=== PATIENT | female | born 1955 | race Caucasian/White ===

== ENCOUNTER 2020-08-06 08:27 | Outpatient (CLI) | payer MEDICARE, BC, SELFPAY ==
--- NOTE | ~2020-08-06 | MM_ITS ---
EXAMINATION: MM screening darien BI w ash HISTORY: Screening mammogram TECHNIQUE: Craniocaudal and mediolateral oblique 3-D tomosynthesis images were obtained and synthetic 2-D images were generated. CAD analysis was submitted and interpreted. COMPARISON: 05/03/2019, 04/02/2018, 03/31/2017 bilateral digital screening mammogram examinations BREAST PARENCHYMAL COMPOSITION: The breasts are almost entirely fatty. FINDINGS: There is no evidence of suspicious mass, calcification, or architectural distortion to sugg est malignancy in either breast. There has been no suspicious interval change. IMPRESSION: 1. No mammographic evidence of malignancy. 2. Recommend routine screening mammography in one year. BI-RADS Category 1: Negative Reviewed, dictated and finalized at location A.
--- NOTE | ~2020-08-06 | DEXA_ITS ---
Bone Density Report Name: Shaina De Leon Age: 64 Sex: Female Ethnicity: White Date of : 1955 Indication: postmenopausal; height loss; Referring Provider: Edison Gonzalez Study: Bone densitometry was performed. Exam Date: August 06, 2020 Accession number: [id number] Bone Density: Region BMD T-score Z-score Classification AP Spine (L1-L4) 1.160 1.0 2.9 Normal Femoral Neck (Left) 0.641 -1.9 -0.3 Osteopenia Total Hip (Left) 0.897 -0.4 0.9 Normal Total Hip Bilateral Avg 0.908 -0.3 1.0 Normal Femoral Neck (Right) 0.620 -2.1 -0.5 Osteopenia Total Hip (Right) 0.917 -0.2 1.1 Normal World Health Organization criteria for BMD impression classify patients as: Normal (T-score at or above -1.0), Osteopenia (T-score between -1.0 and -2.5), or Osteoporosis (T-score at or below -2.5). 10-year Fracture Risk(1): Major Osteoporotic Fracture 11% Hip Fracture 1.7% Reported Risk Factors: [place] (), Neck BMD=0.620, BMI=32.3 (1) FRAX(R) Version 3.08. Fracture probability calculated for an untreated patient. Fracture probability may be lower if the patient has received treatment. Previous Exams: Region Exam Age BMD T-score BMD Change BMD Change Date g/cm2 vs Baseline vs Previous AP Spine(L1-L4) 08/06/2020 64 1.160 1.0 -0.137(-10.5%) -0.027(-2.2%)* 09/25/2016 60 1.187 1.3 -0.110(-8.5%)# -0.069(-5.5%)# 02/21/2009 53 1.256 1.9 -0.041(-3.1%)* -0.041(-3.1%)* 12/07/2003 48 1.297 2.3 Total Hip(Left) 08/06/2020 64 0.897 -0.4 -0.107(-10.7%) -0.085(-8.7%)* 09/25/2016 60 0.982 0.3 -0.022(-2.2%)# 0.038(4.0%)# 02/21/2009 53 0.944 0.0 -0.060(-6.0%)* -0.060(-6.0%)* 12/07/2003 48 1.004 0.5 Total Hip(Right) 08/06/2020 64 0.917 -0.2 -0.119(-11.5%) -0.097(-9.6%)* 09/25/2016 60 1.013 0.6 -0.022(-2.1%)# 0.024(2.4%)# 02/21/2009 53 0.989 0.4 -0.046(-4.5%)* -0.046(-4.5%)* 12/07/2003 48 1.036 0.8 *Denotes significance at 95% confidence level, LSC for AP Spine = 0.022 g/cm2, LSC for Total Hip = 0.027 g/cm2 Clinical Information Provided by Patient: Has used the following medications: Vitamin D Patient maximum height was 60 Onset of menses at age 12 Number of children 0 Impression: The patient has low bone mass, based on the Right Femoral Neck T-score. The patient has an estimated ten-year risk of hip fracture of 1.7% and an estimated ten-year risk of major fracture of 11%, based
== END 2020-08-06 08:28 | disposition home or self-care (01) ==
LOC: ANHIMG 08:28
PROVIDERS: PCP Family Medicine; Visit Provider Physician Assistant
DX: Z12.31 Encounter for screening mammogram for malignant neoplasm of breast (principal); Z78.0 Asymptomatic menopausal state
CPT/HCPCS: 77063; 77067; 77080

== ENCOUNTER → 2021-01-05 00:03 | Outpatient (CLI) | payer MEDICARE, BC, SELFPAY ==
[2021-01-05 18:04] LABS: SARS-CoV-2 RNA PCR Negative
== END ==
PROVIDERS: PCP Family Medicine; Visit Provider Physician Assistant
DX: R05 Cough (principal); R50.9 Fever, unspecified; J02.9 Acute pharyngitis, unspecified; Z20.822 Contact with and (suspected) exposure to COVID-19
CPT/HCPCS: C9803; U0003; U0005

== ENCOUNTER 2021-02-28 12:57 | Outpatient (CLI) | payer MEDICARE, BC, SELFPAY ==
--- NOTE | ~2021-02-28 | XR_ITS ---
EXAMINATION: XR chest 2V DATE: 02/28/2021 13:13 INDICATION: Cough. Mid right back pain. TECHNIQUE: Frontal and lateral views of the chest were obtained. COMPARISON: Chest 2 views 06/12/2013 FINDINGS: There is mild atelectasis in left lower lung zone. No pleural effusion or pneumothorax. The heart size is normal. There are changes of anterior fusion procedure in cervical spine. IMPRESSION: 1. Mild atelectasis in left lower lung zone. Reviewed, dictated and finalized at location A. E ANALYST
== END 2021-02-28 12:58 | disposition home or self-care (01) ==
PROVIDERS: PCP Family Medicine; Visit Provider Family Medicine
DX: R05.9 Cough, unspecified (principal); J98.11 Atelectasis
CPT/HCPCS: 71046

== ENCOUNTER 2021-05-28 12:39 | Outpatient (CLI) | payer MEDICARE, BC, SELFPAY ==
--- NOTE | ~2021-05-28 | XR_ITS ---
XR chest 2V DATE: 05/28/2021 13:00 INDICATION: Atelectasis TECHNIQUE: PA and lateral views COMPARISON: 02/28/2021 PA and lateral chest FINDINGS: Status post anterior cervical spine surgical fusion. Normal heart size. No hilar or mediastinal enlargement. No pulmonary infiltrate or consolidation, ple ural effusion or pulmonary vascular congestion or pneumothorax. There is dextroscoliosis and degenerative spurring of the thoracic spine. IMPRESSION: No active cardiopulmonary disease Reviewed, dictated and finalized at location B. RELINER
== END 2021-05-28 12:40 | disposition home or self-care (01) ==
LOC: ANHIMG 12:45
PROVIDERS: PCP Family Medicine; Visit Provider Family Medicine
DX: J98.11 Atelectasis (principal)
CPT/HCPCS: 71046

== ENCOUNTER 2021-08-21 08:51 | Outpatient (CLI) | payer MEDICARE, BC, SELFPAY ==
--- NOTE | ~2021-08-21 | MM_ITS ---
EXAMINATION: MM screening darien BI w ash HISTORY: Screening TECHNIQUE: Craniocaudal and mediolateral oblique 3-D tomosynthesis images were obtained and synthetic 2-D images were generated. CAD analysis was submitted and interpreted. COMPARISON: Comparison to multiple prior studies sequentially, with oldest reviewed study dated 07/2014. BREAST PARENCHYMAL COMPOSITION: The breasts are almost entirely fatty. FINDINGS: There is a developing asymmetry in the subareolar location of the right breast on CC view. The left breast is stable without evidence for malignancy. IMPRESSION: 1. Developing asymmetry of the right breast. 2. Additional mammographic views and possible breast ultrasound are recommended. BI-RADS Category 0: Incomplete: Needs additional imaging evaluation. Reviewed, dictated and finalized at location A. IMPRESSION: 1. Developing asymmetry of the right breast. 2. Additional mammographic views and possible breast ultrasound are recommended . BI-RADS Category 0: Incomplete: Needs additional imaging evaluation.
== END 2021-08-21 08:52 | disposition home or self-care (01) ==
LOC: ANHIMG 08:54
PROVIDERS: PCP Internal Medicine; Visit Provider Internal Medicine
DX: Z12.31 Encounter for screening mammogram for malignant neoplasm of breast (principal); R92.8 Other abnormal and inconclusive findings on diagnostic imaging of breast
CPT/HCPCS: 77063; 77067

== ENCOUNTER 2021-08-30 11:01 | Outpatient (CLI) | payer MEDICARE, BC, SELFPAY ==
--- NOTE | ~2021-08-30 | MM_ITS ---
EXAMINATION: MM diagnostic darien RT w ash HISTORY: Right breast asymmetry on screening mammogram TECHNIQUE: Additional 3-D tomosynthesis images of the right breast were performed and synthetic 2-D i mages were generated. CAD analysis was submitted and interpreted. COMPARISON: 08/21/2021, 08/06/2020, 05/03/2019 FINDINGS: There is a 3 mm mass at the 6:00 location the anterior third of the breast 2 cm from the ni pple which is stable when compared to prior examinations. There has been no suspicious interval carvalho e. No suspicious calcification or architectural distortion are identified. IMPRESSION: 1. No mammographic evidence of malignancy. 2. Recommend routine screening mammography in one year. BI-RADS Category 2: Benign finding(s). Reviewed, dictated and finalized at location A.
== END 2021-08-30 11:02 | disposition home or self-care (01) ==
LOC: ANHIMG 11:03
PROVIDERS: PCP Internal Medicine; Visit Provider Internal Medicine
DX: N64.89 Other specified disorders of breast (principal)
CPT/HCPCS: 77061; 77065; G0279

== ENCOUNTER 2022-10-24 08:12 | Outpatient (CLI) | payer MEDICARE, BC, SELFPAY ==
--- NOTE | ~2022-10-24 | MM_ITS ---
EXAMINATION: MM screening darien BI w ash HISTORY: Screening mammogram TECHNIQUE: Craniocaudal and mediolateral oblique 3-D tomosynthesis images were obtained and synthetic 2-D images were generated. CAD analysis was submitted and interpreted. COMPARISON: 08/30/2021 diagnostic right mammogram 08/21/2021, 08/06/2020, 05/03/2019 bilateral screening mammogram examinations BREAST PARENCHYMAL COMPOSITION: There are scattered areas of fibroglandular density. FINDINGS: There is no evidence of suspicious mass, calcification, or architectural distortion to sugg est malignancy in either breast. There has been no suspicious interval change. IMPRESSION: 1. No mammographic evidence of malignancy. 2. Recommend routine screening mammography in one year. BI-RADS Category 1: Negative Reviewed, dictated and finalized at location A.
== END 2022-10-24 08:13 | disposition home or self-care (01) ==
LOC: ANHIMG 08:15
PROVIDERS: PCP Internal Medicine; Visit Provider Internal Medicine
DX: Z12.31 Encounter for screening mammogram for malignant neoplasm of breast (principal)
CPT/HCPCS: 77063; 77067

== ENCOUNTER 2023-12-01 07:47 | Outpatient (CLI) | payer MEDICARE, BC, SELFPAY ==
--- NOTE | ~2023-12-01 | MM_ITS ---
EXAMINATION: MM screening darien BI w ash HISTORY: Screening TECHNIQUE: Craniocaudal and mediolateral oblique 3-D tomosynthesis images were obtained and synthetic 2-D images were generated. CAD analysis was submitted and interpreted. COMPARISON: Comparison to multiple prior studies sequentially, with oldest reviewed study dated 03/14. BREAST PARENCHYMAL COMPOSITION: Not dense: There are scattered areas of fibroglandular density. FINDINGS: There is no evidence of suspicious mass, calcification, or architectural distortion to sugg est malignancy in either breast. There has been no suspicious interval change. IMPRESSION: 1. No mammographic evidence of malignancy. 2. Recommend routine screening mammography in one year. BI-RADS Category 1: Negative Reviewed, dictated and finalized at location B.
== END 2023-12-01 07:48 | disposition home or self-care (01) ==
LOC: ANHIMG 07:49
PROVIDERS: PCP Internal Medicine; Visit Provider Internal Medicine
DX: Z12.31 Encounter for screening mammogram for malignant neoplasm of breast (principal)
CPT/HCPCS: 77063; 77067

== ENCOUNTER 2024-03-03 04:45 | Emergency (ER) | payer MEDICARE, BC, SELFPAY ==
--- NOTE | ~2024-03-03 | XR_ITS ---
Portable chest x-ray Comparison: 05/28/2021 Clinical History: Status post fall Findings: Lungs are clear, without focal consolidation or pleural effusion. Cardiomediastinal silho uette is stable. Bones and soft tissues are unremarkable, aside from cervical spine fixation hardware . Impression: Clear lungs. Reviewed, dictated and finalized at [facility]. ACE HYDROLOGIST Impression: Clear lungs.
--- NOTE | ~2024-03-03 | CT_ITS ---
Non-contrast Head CT History: Trauma Technique: Axial non-contrast imaging of the brain was performed. Dose reduction technique was used on this scan by utilizing automated exposure control and iterative reconstruction technique. The dose -length product (DLP) was 681.00 mGy-cm. Findings: There is no evidence of intracranial hemorrhage, mass lesion, or acute infarct. Brain par enchyma appears normal. The ventricles and subarachnoid spaces are normal in size. The calvarium ap pears normal. The visualized paranasal sinuses and mastoid air cells are clear. Impression: No significant abnormality seen. Reviewed, dictated and finalized at location . RECONCILIATION SPECIALIST Impression: No significant abnormality seen.
--- NOTE | ~2024-03-03 | XR_ITS ---
Left Knee Technique: AP, lateral, and sunrise views were obtained. Clinical History: Status post fall Findings: No fracture or dislocation is seen. Osseous alignment is anatomic. Mild tricompartmental de generative spurring noted. Soft tissues are unremarkable. No joint effusion is seen. Impression: No acute fracture or dislocation. Mild tricompartmental degenerative change. Reviewed, dictated and finalized at location . AL NUTRITIONIST Impression: No acute fracture or dislocation. Mild tricompartmental degenerative change.
[2024-03-03 04:47] VITALS: BP 166/76; RESP 14; TEMP 36.8
--- NOTE | 2024-03-03 04:51 | ECG_ITS ---
Test Date: 2024-03-03 05:05:57 Measurements Intervals [place] Rate: 67 P: 46 [place]: 180 QRS: 2 QRSD: 78 T: 31 QT: 363 QTc: 385 Interpretive Statements SINUS RHYTHM LOW QRS VOLTAGE IN PRECORDIAL LEADS CONSIDER ANTERIOR INFARCT, AGE INDETERMINATE CONSIDER INFERIOR INFARCT, AGE INDETERMINATE BORDERLINE ST-T WAVE ABNORMALITY- HIGH LATERAL LEADS BASELINE ARTIFACT- I, II, III, AVR, AVL, AVF, V1-V6 ABNORMAL ECG No previous ECG available for comparison Electronically Signed On 03-03-2024 05:24:00 SHIPS OR BARGES LOADER by Rj Bright D.O.
--- NOTE | 2024-03-03 05:19 | PC.NURSE ---
went to get labs and line in pt room. pt taken to CT and XRAY
[2024-03-03 06:06] LABS: Basophils Absolute Auto 0.1 K/mm3 (0.0-0.1); Basophils Percent Auto 0.9 % (0.2-1.2); Eosinophils Absolute Auto 0.1 K/mm3 (0-0.3); Eosinophils Percent Auto 1.9 % (0-4.4); Hematocrit 44.5 % (37.0-47.0); Hemoglobin 14.9 g/dL (12.0-15.0); Immature Granulocyte Absolute 0.01 K/mm3 (0.00-0.031); Immature Granulocyte Percent A 0.2 % (0-0.5); Lymphocytes Absolute Auto 1.69 K/mm3 (0.9-3.2); Lymphocytes Percent Auto 28.8 % (18.3-44.2); Mean Corpuscular HGB Conc 33.5 g/dl (32-36); Mean Corpuscular Hemoglobin 30.7 pg (26-34); Mean Corpuscular Volume 91.6 fl (80-100); Mean Platelet Volume 11.9 fl (7.4-10.4); Monocytes Percent Auto 16.9 % (2.6-8.5); Neutrophils Percent Auto 51.3 % (45.5-73.1); Platelet Count Result 154 k/mm3 (150-375); Red Blood Count 4.86 M/mm3 (4.2-5.4); Red Cell Distribution Width 12.9 % (11.5-14.5); White Blood Count 5.9 K/mm3 (4.5-10.0)
[2024-03-03 06:17] LABS: Alanine Aminotransferase 42 U/L (6-35); Albumin Level 4.2 g/dL (3.5-5.1); Alkaline Phosphatase 72 U/L (38-126); Anion Gap 6 mmol/L (4-12); Aspartate Amino Transferase 40 U/L (14-36); Bilirubin,Total 0.4 mg/dL (0.2-1.3); Blood Urea Nitrogen 27 mg/dL (7-17); Calcium 9.7 mg/dL (8.4-10.2); Carbon Dioxide 29 mmol/L (22-30); Chloride 104 mmol/L (98-107); Estimated CRCL calculation 43 ml/min; Estimated Glomerular Filt Rate 55; Glucose 125 mg/dL (65-110); Potassium 3.9 mmol/L (3.4-5.0); Sodium 139 mmol/L (137-145)
--- NOTE | 2024-03-03 06:29 | ED_ITS ---
HPI - Fall General Chief Complaint: Fall Stated Complaint: fall Time Seen by Provider: 03/03/24 04:51 History of Present Illness HPI Narrative: Patient is a 68-year-old female who presents to the emergency department this morning after a ground level fall that occurred at home. Patient states that she was getting up from bed to go use the restroom and believes that she got up too fast and slid off the mattress and to the ground and hit the front of her forehead on the wall. Patient does not believe that she passed out but is not 100% sure. She does have a some minor abrasions to her left elbow and left knee. Patient states that she was able to get up on her own without any help or difficulty. Patient does have a small hematoma to the middle of her forehead and a small hematoma to her lateral left knee. Intact range of motion an oral extremities. Denies any current chest pain or shortness of breath, any lightheadedness, dizziness, blurry vision, focal weakness, numbness and tingling. No additional symptoms or concerns at this time. Related Data Home Medications Medication Instructions Recorded Confirmed fluticasone propionate 50 1 spray intranasal DAILY 04/19/19 02/27/21 mcg/actuation nasal spray,suspension aspirin 81 mg tablet,delayed 81 mg PO QAM 08/19/19 02/27/21 release (Adult Aspirin Regimen) cholecalciferol (vitamin D3) 50 50 mcg PO DAILY 08/19/19 02/27/21 mcg (2,000 unit) capsule multivitamin 1 tablet PO DAILY 08/19/19 02/27/21 ezetimibe 10 mg tablet (Zetia) 10 mg PO DAILY 02/27/21 02/27/21 hydrocortisone 1 % topical cream 1 applic topical BID PRN 02/27/21 02/27/21 (Cortisone (hydrocortisone)) rosuvastatin 20 mg tablet 40 mg PO DAILY 02/27/21 02/27/21 Allergies Allergy/AdvReac Type Severity Reaction Status Date / Time propoxyphene Allergy Mild DZZY/LIGHT- Verified 02/27/21 10:41 HEADED dimenhydrinate [Dramamine] Allergy Unknown Nervous Verified 02/27/21 10:41 erythromycin base Allergy Unknown Nausea Verified 02/27/21 10:41 meclizine Allergy Unknown Nervous Verified 02/27/21 10:41 nitroglycerin Allergy Unknown Hypotension Verified 02/27/21 10:41 Review of Systems Review of Systems: All systems are reviewed and are negative unless stated otherwise in the HPI. FORMERLY [facility] Past Medical History Medical History H/O Mohs micrographic surgery for skin cancer Surgical History Surgical History H/O discectomy H/O heart artery stent History of carpal tunnel release Hx of cholecystectomy Family History Family History Mother Diabetes mellitus Family history of glaucoma Family history of cardiovascular disease Acute myocardial infarction, Onset Age: 60 Family history of coronary artery disease Depression Hypertension Family history of elevated blood lipids Family history of kidney disease Family history of Alzheimer's disease Family history of malignant neoplasm of breast in first degree relative Father Family history of elevated blood lipids, Onset Age: 60 Family history of cardiovascular disease Acute myocardial infarction, Onset Age: 60 Family history of coronary artery disease, Onset Age: 60 Diabetes mellitus Family history of malignant neoplasm of bone Social History Social History Alcohol intake: never Exam Narrative: General: Alert, awake, afebrile, in no acute distress. HEENT: PERRL, no rhinorrhea, no post nasal drip, oropharynx clear, small soft tissue swelling to the mid forehead. Neck: Trachea midline, no JVD, no lymphadenopathy. Cardiovascular: Regular rate and rhythm, no murmurs, rubs or gallops, no peripheral edema. Respiratory: Clear to auscultation bilaterally, no tachypnea, no wheezing, no rhonchi, no rubs, no respiratory distress. Abdomen: Soft, nontender, nondistended, no rebound, no guarding, no peritoneal signs. Musculoskeletal: No joint swelling or deformity, normal muscle tone, small hematoma to the lateral left knee, intact full range of motion in all joints, small abrasion to the left elbow. Skin: No rashes or petechia, no signs of infection. Psychiatric: Alert and oriented, normal behavior and judgment for situation. Neurological: Alert and oriented to person, place, and time. Follows all commands. No focal deficits, speech is clear and fluent. Course Vital Signs Vital signs: Vital Signs Temperature 98.2 F 03/03/24 04:47 Respiratory Rate 14 03/03/24 04:47 Blood Pressure 166/76 H 03/03/24 04:47 Temperature 98.2 F 03/03/24 04:47 Respiratory Rate 14 03/03/24 04:47 Blood Pressure 166/76 H 03/03/24 04:47 MDM - Fall MDM Narrative Medical decision making narrative: The patient was evaluated by myself in the emergency department. History is obtained from patient who is an independent historian and physical exam was performed. External medical records were reviewed at this time. IV was established and pertinent tests were ordered. Patient was administered oral Tylenol 650 mg. EKG was obtained which revealed sinus rhythm rate of beats per minute. No ST changes, T wave inversions or evidence of acute ischemia. EKG was independently interpreted by me and is currently pending official cardiology read. Laboratory results obtained revealing mild transaminitis with an AST of 40 and ALT of 42, otherwise no acute process. Troponin negative. Imaging studies obtained included chest and left knee x-rays which was independently interpreted by me revealing no acute process, which is pending final radiology interpretation. CT brain without IV contrast was also obtained at this time and inability interpreted by me revealing no acute intracranial process. Differential diagnosis considerations include ground level fall, intracranial hemorrhage, fractures, dislocations, syncopal episode. Comorbidities impacting this visit include none. I have evaluated and discussed social determinants of health with the patient that could potentially impact subsequent diagnosis and treatment plans. On repeat assessment of the patient, reevaluation revealed that the patient is doing well and is in no acute distress. Patient symptoms have improved since she arrived to our emergency department. Repeat vital signs were all reviewed and noted to be stable. Differential diagnosis and treatment plan were discussed with the patient at bedside. Patient agrees with discussion and after shared medical decision making agrees with discharge. All questions were answered to the patient's satisfaction. Patient will follow up with her PCP in 3-5 days. Patient was provided with strict return precautions and instructed to return to the emergency department if any new or worsening symptoms develop. The patient was discharged in stable condition. Lab Data 03/03/24 05:58 03/03/24 05:58 Labs: Lab Results 03/03/24 Range/Units 05:58 WBC 5.9 (4.5-10.0) K/mm3 RBC 4.86 (4.2-5.4) M/mm3 Hgb 14.9 (12.0-15.0) g/dL Hct 44.5 (37.0-47.0) % MCV 91.6 (80-100) fl MCH 30.7 (26-34) pg MCHC 33.5 (32-36) g/dl RDW 12.9 (11.5-14.5) % Plt Count 154 (150-375) k/mm3 MPV 11.9 H (7.4-10.4) fl Immature Gran % (Auto) 0.2 (0-0.5) % Neut % (Auto) 51.3 (45.5-73.1) % Lymph % (Auto) 28.8 (18.3-44.2) % [place] % (Auto) 16.9 H (2.6-8.5) % Eos % (Auto) 1.9 (0-4.4) % Baso % (Auto) 0.9 (0.2-1.2) % Lymph # (Auto) 1.69 (0.9-3.2) K/mm3 [place] # (Auto) 1.0 H (0.1-0.6) K/mm3 Eos # (Auto) 0.1 (0-0.3) K/mm3 Baso # (Auto) 0.1 (0.0-0.1) K/mm3 Abs Immat Gran (auto) 0.01 (0.00-0.031) K/mm3 Absolute Neuts (auto) 3.0 (1.3-6.7) K/mm3 Absolute Nucleated RBC 0.000 (0.0-0.012) K/mm3 Nucleated RBC % 0.0 (0.0-0.2) % Sodium 139 (137-145) mmol/L Potassium 3.9 (3.4-5.0) mmol/L Chloride 104 (98-107) mmol/L Carbon Dioxide 29 (22-30) mmol/L Anion Gap 6 (4-12) mmol/L BUN 27 H (7-17) mg/dL Creatinine 1.00 (0.7-1.0) mg/dL Estim Creat Clear Calc 43 ml/min Estimated GFR 55 L (59 - ) Glucose 125 H (65-110) mg/dL Calcium 9.7 (8.4-10.2) mg/dL Magnesium 2.0 (1.6-2.3) mg/dL Total Bilirubin 0.4 (0.2-1.3) mg/dL AST 40 H (14-36) U/L ALT 42 H (6-35) U/L Alkaline Phosphatase 72 (38-126) U/L Troponin I Pending Total Protein 7.0 (6.3-8.2) g/dL Albumin 4.2 (3.5-5.1) g/dL Discharge Plan Discharge Clinical Impression: Fall from ground level, Head injury Patient Disposition: Home, Self-Care Condition: Improved Instructions: Antibiotic Form, Head Injury (ED), Fall Prevention (ED) Additional Instructions: Please follow-up with your family doctor within the next 3-5 days. Return emergency department if any new or worsening symptoms develop. Prescriptions: No Action fluticasone propionate 50 mcg/actuation spray,suspension 1 spray NASAL DAILY aspirin [Adult Aspirin Regimen] 81 mg tablet,delayed release (DR/EC) 81 mg PO QAM rosuvastatin 20 mg tablet 40 mg PO DAILY multivitamin Tablet 1 tablet PO DAILY cholecalciferol (vitamin D3) 50 mcg (2,000 unit) capsule 50 mcg PO DAILY ezetimibe [Zetia] 10 mg tablet 10 mg PO DAILY hydrocortisone [Cortisone (hydrocortisone)] 1 % cream 1 applic topical BID PRN telmisartan 80 mg tablet See Rx Instructions .ROUTE .COMPLEX Qty: 90 3RF Dose Instruction: TAKE 1 TABLET BY MOUTH DAILY Rx Instructions: TAKE 1 TABLET BY MOUTH DAILY amlodipine 5 mg tablet See Rx Instructions .ROUTE .COMPLEX Qty: 90 3RF Dose Instruction: TAKE 1 TABLET BY MOUTH DAILY Rx Instructions: TAKE 1 TABLET BY MOUTH DAILY metoprolol succinate 100 mg tablet extended release 24 hr See Rx Instructions .ROUTE .COMPLEX Qty: 90 3RF Dose Instruction: TAKE 1 TABLET BY MOUTH EVERY DAY Rx Instructions: TAKE 1 TABLET BY MOUTH EVERY DAY omeprazole 40 mg capsule,delayed release(DR/EC) See Rx Instructions .ROUTE .COMPLEX Qty: 90 3RF Dose Instruction: TAKE 1 CAPSULE BY MOUTH DAILY Rx Instructions: TAKE 1 CAPSULE BY MOUTH DAILY folic acid 1 mg tablet See Rx Instructions .ROUTE .COMPLEX Qty: 90 3RF Dose Instruction: TAKE 1 TABLET BY MOUTH DAILY Rx Instructions: TAKE 1 TABLET BY MOUTH DAILY lorazepam [Ativan] 0.5 mg tablet 0.5 mg PO BID PRN (Reason: anxiety) Qty: 180 1RF Follow-up/Referrals: Anny,Tino Mclean MD [Primary Care Provider] - 3 Days Time of Disposition: 06:32
[2024-03-03 07:18] LABS: Troponin I < 0.012 ng/mL (0.000-0.034)
[2024-03-03] MEDS: ACETAMINOPHEN 325 MG TABLET 650 MG PO (07:18)
[2024-03-03 07:30] VITALS: BP 123/61; PULSE 64; RESP 16; O2SAT 97
== END 2024-03-03 07:30 | disposition home or self-care (01) ==
PROVIDERS: Emergency Provider Emergency Medicine; PCP Internal Medicine
DX: S09.90XA Unspecified injury of head, initial encounter (principal); S80.02XA Contusion of left knee, initial encounter; Z95.5 Presence of coronary angioplasty implant and graft; Z85.828 Personal history of other malignant neoplasm of skin; Z90.49 Acquired absence of other specified parts of digestive tract; Z79.82 Long term (current) use of aspirin; Z79.899 Other long term (current) drug therapy; R94.31 Abnormal electrocardiogram [ECG] [EKG]; W06.XXXA Fall from bed, initial encounter
CPT/HCPCS: 36415; 70450; 71045; 73564; 80053; 83735; 84484; 85025; 93005; 99284; A9270

== ENCOUNTER 2025-01-10 08:29 | Outpatient (CLI) | payer MEDICARE, BC, SELFPAY ==
--- NOTE | ~2025-01-10 | MM_ITS ---
EXAMINATION: MM screening darien BI w ash HISTORY: Screening TECHNIQUE: Craniocaudal and mediolateral oblique 3-D tomosynthesis images were obtained and synthetic 2-D images were generated. CAD analysis was submitted and interpreted. COMPARISON: Comparison to multiple prior studies sequentially, with oldest reviewed study dated 05/03/2019. BREAST PARENCHYMAL COMPOSITION: Not Dense: The breasts are almost entirely fatty. FINDINGS: There is no evidence of suspicious mass, calcification, or architectural distortion to suggest malignancy in either breast. There has been no suspicious interval change. IMPRESSION: 1. No mammographic evidence of malignancy. 2. Recommend routine screening mammography in one year. BI-RADS Category 1: Negative Reviewed, dictated and finalized at location B.
--- OUTSIDE RECORDS SUMMARY | 2025-01-10 08:43 | XMS_ITS | Encounter Summary ---
Author Organization [facility] Address [address] [place] [address] Care Team Providers Care Clamp Carrier Operator Name Role Phone Jennyfer Sosa MD Primary Care Provider [phone] Encounter Details Date Type Department Care Team (Late st Contact Info) Description 07/01/2019 Lab Requisition [facility] Care DermPath Lab [address] [facility], [place] [phone] Judy Goldstein DO [address] [facility] 3 [place] [address] Social History Tobacco Use Types Packs/Day Years Used Date Smoking Tobacco: Former Smokeless Tobacco: Never Alcohol Use Standard Drinks/Week Comments Yes 0 (1 standard drink = 0.6 oz pur e alcohol) AUDIT-C Answer Date Recorded Frequency of Alcohol Consumption Monthly or less 02/07/2019 Average Number of Drinks Not on file 019 Frequency of Binge Drinking Not on file 01/12 Comments Unknown Sex and Gender Information Value Date Recorded Sex Assigned at Not on file Legal Sex Female 10:08 AM CDT Gender Identity Not on file Sexual Orientation Not on file documented as of this encounter Plan of Treatment Not on file documented as of this encounter Procedures Procedure Name Priority Date/Time Associated Diagnosis Comments DERMATOPATHOLOGY Routine 06/30/2019 12:0 0 AM CDT documented in this encounter Results * DERMATOPATHOLOGY (06/30/2019 12:00 AM CDT) Case Report Dermatopathology Report Case: [id number] Authorizing Provider: Judy Goldstein DO Collected: 06/30/2019 12:00 AM Ordering Location: [facility] DermPath Lab Received: 07/01/2019 06:36 AM Pathologist: Misa Cardenas MD Specimens: A) - Skin, left antihelix B) - Skin, right lateral thigh 0 12:43 PM CDT DERMATOPATHOLOGY LABORATORY Final Diagnosis Specimen A. SKIN, left antihelix: DERMAL SCAR RESIDUAL BASAL CELL CARCINOMA NOT IDENTIFIED (L90.5) Specimen B. 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 R/O NMSC. 0 12:43 PM CDT DERMATOPATHOLOGY LABORATORY Gross Description Specimen A: Received is one formalin filled container labeled with the patient's name and designated left antihelix. The specimen consists of a shave biopsy measuring 4x4x1 mm. Jar 0. Specimen B: Received is one formalin filled container labeled with the patient's name and designated right lateral thigh. The specimen consists of a shave biopsy measuring 5x3x1 mm. Jar 0. 0 12:43 PM CDT DERMATOPATHOLOGY LABORATORY Microscopic Description Specimen A. SKIN, left antihelix: There are fibroblasts and collagen bundles oriented parallel to the skin surface. There are elongated blood vessels, some of which are oriented perpendicular to the skin surface. No basal cell carcinoma is identified. Specimen B. SKIN, right lateral thigh: There is a cup-shaped invagination filled with cornified material and surrounded by slight epidermal hyperplasia in association with acantholytic dyskeratosis. 0 12:43 PM CDT DERMATOPATHOLOGY LABORATORY Disclaimer An external and internal positive and negative controls are appropriate for the histochemical, immunohistochemical and immunofluorescence stain(s) in this case (if any), except where stated explicitly. The performance characteristics of the stain(s) cited in this report were developed and its performance characteristic determined by the Dermatopathology Laboratory at [facility], directed by Dr. Reji Kenyon. These tests need not be, and therefore are not, approved by the [place] Food and Drug Administration. The tests are used for clinical purposes. Billing Codes Specimen Charges Stain Charges 48320 93730 1 1 0 12:43 PM CDT DERMATOPATHOLOGY LABORATORY Embedded Images 0 12:43 PM CDT DERMATOPATHOLOGY LABORATORY Pathology/Cytology TISSUE SPECIMEN FROM SKIN / Unknown 06/30/2019 07/01/2019 6:36 AM CDT Miscellaneous samples (specimen) TISSUE SPECIMEN FROM SKIN / Unknown 06/30/2019 07/01/2019 6:36 AM CDT us Judy Goldstein DO LAB - PATHOLOGY/CYTOLOGY ORDERABLES Final Result DERMATOPATHOLOGY LABORATORY [facility] - Department of Dermatology [address] [place] [address] [address] [phone] documented in this encounter Visit Diagnoses Not on filedocumented in this encounter Care Teams Clamp Carrier Operator Relationship Specialty Start Date End Date Jennyfer Sosa MD [address] [place] [id number] PCP - General 10/08/18 documented as of this encounter
--- OUTSIDE RECORDS SUMMARY | 2025-01-10 08:43 | XMS_ITS | Encounter Summary ---
Author Organization [facility] Address [address] [place] [address] Care Team Providers Care Door Person Name Role Phone Jennyfer Sosa MD Primary Care Provider [phone] Encounter Details Date Type Department Care Team (Late st Contact Info) Description 10/06/2024 Lab Requisition [facility] - DermPath Lab [address] [facility], [place] [address] Abimbola Núñez MD [address] [facility] 3 [place] [address] Social History Tobacco Use Types Packs/Day Years [...] Priority Date/Time Associated Diagnosis Comments DERMATOPATHOLOGY Routine 10/06/2024 9:35 AM CDT documented in this encounter Results * DERMATOPATHOLOGY (10/06/2024 9:35 AM CDT) Case Report Dermatopathology Report Case: [id number] Authorizing Provider: Abimbola Núñez MD Collected: 10/06/2024 09:35 AM Ordering Location: [facility] - Received: 10/10/2024 06:52 AM DermPath Lab Pathologist: Ezio Kenyon MD Specimen: Skin, right helix 3:02 PM CDT DERMATOPATHOLOGY LABORATORY Final Diagnosis Specimen A. SKIN, right helix: SQUAMOUS CELL CARCINOMA IN SITU, PRESENT AT THE BASE OF THE SPECIMEN (D04.21) OVERLYING CUTANEOUS HORN (L85.8) (see microscopic description and comment) 3:02 PM CDT DERMATOPATHOLOGY LABORATORY at 1502 CDT Clinical History HAK vs CNH vs SCC 3:02 PM CDT DERMATOPATHOLOGY LABORATORY Gross Description Specimen A: Received is one formalin filled container labeled with the patient's name and designated right helix. The specimen consists of a shave biopsy measuring 2 pieces 3x2x1,3x1x1 mm. Jar 0. 3:02 PM CDT DERMATOPATHOLOGY LABORATORY Microscopic Description Specimen A. SKIN, right helix: The epidermis shows parakeratosis, full thickness disorderly maturation of keratinocytes, mitoses at different levels, and dyskeratotic cells. The lesion extends to the base of the biopsy. There is a column of marked compact hyperkeratosis. COMMENT: An invasive squamous cell carcinoma cannot be ruled out. 3:02 PM CDT DERMATOPATHOLOGY LABORATORY Disclaimer An external and internal positive and negative controls are appropriate for the histochemical, immunohistochemical and immunofluorescence stain(s) in this case (if any), except where stated explicitly. The performance characteristics of the stain(s) cited in this report were developed and its performance characteristic determined by the Dermatopathology Laboratory at [facility], directed by Dr. Reji Kenyon. These tests need not be, and therefore are not, approved by the [place] Food and Drug Administration. The tests are used for clinical purposes. Billing Codes Specimen Charges Stain Charges 90635 1 3:02 PM CDT DERMATOPATHOLOGY LABORATORY Embedded Images 3:02 PM CDT DERMATOPATHOLOGY LABORATORY Pathology/Cytolo gy TISSUE SPECIMEN FROM SKIN / Unknown 10/06/2024 9:35 AM CDT 10/10/2024 6:52 AM CDT Abimbola Núñez MD LAB - PATHOLOGY/CYTOLOGY ORD ERABLES Final Result DERMATOPATHOLOGY LABORATORY [facility] - Department of Dermatology [facility] Specialized Medicine [address] [place] [address], [address] [phone] documented in this encounter Visit Diagnoses Not on filedocumented in this encounter Care Teams Door Person Relationship Specialty Start Date End Date Jennyfer Sosa MD [address] [place] [address] PCP - General 10/08/18 documented as of this encounter
--- OUTSIDE RECORDS SUMMARY | 2025-01-10 08:43 | XMS_ITS | Encounter Summary ---
Author Organization [facility] Address [address] [place] [address] Care Team Providers Care Smalltalk Developer Name Role Phone Jennyfer Sosa MD Primary Care Provider [phone] Encounter Details Date Type Department Care Team (Late st Contact Info) Description 05/03/2020 Lab Requisition [facility] Care DermPath Lab [address] [facility], [place] [phone] Judy Goldstein DO [address] [facility] 3 [place] [address] Social History Tobacco Use Types Packs/Day Years [...] Priority Date/Time Associated Diagnosis Comments DERMATOPATHOLOGY Routine 05/02/2020 3:27 AM BEEF BONER documented in this encounter Results * DERMATOPATHOLOGY (05/02/2020 3:27 AM BEEF BONER) Case Report Dermatopathology Report Case: [id number] Authorizing Provider: Judy Goldstein DO Collected: 05/02/2020 03:27 AM Ordering Location: [facility] DermPath Lab Received: 05/03/2020 08:49 AM Pathologist: Bela Quintana MD Specimen: Skin, left mandaen 4:48 PM [facility] DERMATOPATHOLOGY LABORATORY Final Diagnosis Specimen A. SKIN, left mandaen: SOLAR LENTIGO (L81.4) (see microscopic description) 4:48 PM [facility] DERMATOPATHOLOGY LABORATORY at 1648 BEEF BONER Clinical History MAC-SK R/O MM, irregular border. 4:48 PM [facility] DERMATOPATHOLOGY LABORATORY Gross Description Specimen A: Received is one formalin filled container labeled with the patient's name and designated left mandaen. The specimen consists of a shave measuring 3t1d1sp. Jar 0. 4:48 PM [facility] DERMATOPATHOLOGY LABORATORY Microscopic Description Specimen A. SKIN, left mandaen: There is orthokeratosis. There is a slight increase in epidermal thickness with lentiginous buds of hyperpigmented keratinocytes. The number of melanocytes, highlighted by MART-1/Melan-A immunohistochemical staining, is only mildly increased. In the dermis, there is basophilic degeneration of elastic fibers. 4:48 PM [facility] DERMATOPATHOLOGY LABORATORY Disclaimer An external and internal positive and negative controls are appropriate for the histochemical, immunohistochemical and immunofluorescence stain(s) in this case (if any), except where stated explicitly. The performance characteristics of the stain(s) cited in this report were developed and its performance characteristic determined by the Dermatopathology Laboratory at [facility], directed by Dr. Reji Kenyon. These tests need not be, and therefore are not, approved by the [place] Food and Drug Administration. The tests are used for clinical purposes. Billing Codes Specimen Charges Stain Charges 88424 1 98763 1 4:48 PM [facility] DERMATOPATHOLOGY LABORATORY Embedded Images 4:48 PM [facility] DERMATOPATHOLOGY LABORATORY Pathology/Cytolo gy TISSUE SPECIMEN FROM SKIN / Unknown 05/02/2020 3:27 AM BEEF BONER 05/03/2020 8:49 AM BEEF BONER us Judy Goldstein DO LAB - PATHOLOGY/CYTOLOGY ORDERABLES Final Result DERMATOPATHOLOGY LABORATORY [facility] - Department of Dermatology [address], [address] [phone] documented in this encounter Visit Diagnoses Not on filedocumented in this encounter Care Teams Smalltalk Developer Relationship Specialty Start Date End Date Jennyfer Sosa MD [address] [place], [place] [id number] PCP - General 10/08/18 documented as of this encounter
--- OUTSIDE RECORDS SUMMARY | 2025-01-10 08:43 | XMS_ITS | Clinical Summary ---
Author Organization [facility] [address] Address [address] [place] [address] Care Team Providers Care Guitar Repair Technician Name Role Phone Tino Mccormick MD Primary Care Provider [phone] Allergies Active Allergy Reactions Criticality Noted Date Comments Erythromycin Diarrhea,Nausea & Vomiting Low Nitroglycerin Propoxyphene Medications amLODIPine (NORVASC) 5 mg tablet take 1 tablet by oral route every day 90 3 5 Active multivitamin capsule take 1 capsule by oral route every day 0 0 7 Active folic acid (FOLVITE) 1 mg tablet take 1 tablet (1MG) by oral route every day 0 2 Active cholecalciferol (VITAMIN D-3) 2,000 unit capsule 1 capsule (2,000 Units total) Active aspirin (ADULT LOW DOSE ASPIRIN) 81 mg tablet Take 1 tablet (81 mg total) by mouth daily. 8 Active omeprazole (PriLOSEC) 40 mg capsule Take 1 capsule (40 mg total) by mouth daily Active LORazepam (ATIVAN) 0.5 mg tablet 1 tablet (0.5 mg total) 2 Active ezetimibe (ZETIA) 10 mg tablet Take 1 tablet (10 mg total) by mouth daily 30 tablet 11 1 Active rosuvastatin (CRESTOR) 40 mg tablet Take 1 tablet (40 mg total) by mouth daily 90 tablet 3 2 Active coenzyme R94-[id number] E 100-5 mg-unit capsule Take 1 capsule by mouth daily Active metoprolol XL (TOPROL-XL) 50 mg extended release tablet Take 1 tablet (50 mg total) by mouth daily 90 tablet 3 5 Active Additional Information Patient taking differently: 100 mgoral Daily, Reported on 07/04/2024 Active Problems Problem Noted Date Diagnosed Date Near syncope 08/26/2022 Orthostatic hypotension 08/26/2022 Labile hypertension 02/21/2022 Medication side effects 02/21/2022 Mixed hyperlipidemia 02/21/2022 Palpitations 09/06/2021 Gastroesophageal reflux disease without esophagi tis 08/10/2019 Muscle pain 07/04/2016 Overview (09/05/2016): Myalgia Coronary artery disease invo lving [place] coronary artery of [place] heart without angina pectoris 06/27/2015 Overview (07/17/2016): Coronary artery disease involving [place] coronary artery of [place] heart without angina pectoris Hypertensive heart disease without heart failure 06/27/2015 Overview (07/17/2016): Hypertensive heart disease with diastolic heart failure Chronic kidney disease, stage III (moderate) 04/2014 Overview (07/17/2016): CKD (chronic kidney disease) stage 3, GFR 30-59 ml/min Edema 12/12/2014 Overview (07/17/2016): Edema Old myocardial infarction 06/06/2014 Overview (07/17/2016): Old myocardial infarction Benign essential hypertension 06/06/2014 Overview (07/17/2016): Benign essential hypertension Resolved Problems Problem Noted Date Diagnosed Date Resolved Date Atypical chest pain 03/01/2021 06/08/19 25 Left ventricular dilatation 06/27/2015 06/08/2024 Overview (07/17/2016): LVE (left ventricular enlargement) Dyslipidemia 06/27/2015 03/01/2021 Overview (07/17/2016): Dyslipidemia Pure hypercholesterolemia 06/06/2014 Overview (07/17/2016): Pure hypercholesterolemia Surgical History Surgery Date Site/Laterality Comments NECK SURGERY neck surgery CHOLECYSTECTOMY Cholecystectomy CARPAL TUNNEL RELEASE Surgery for Carpal Tunnel ABDOMINAL SURGERY Gall bladder removed SPINE SURGERY 2006 Medical History Medical History Date Comments Hx Other Medical GERD, anxiety, DLD, HTN, CAD s/p PCI 1999, neck pa Coronary artery disease Hyperlipidemia Hypertension GERD (gastroesophageal reflux disease) On going Heart disease 1998 Anxiety On going Family History Medical History Relation Name Comments Cancer Father David Holly Coronary artery disease Father David Ball r Coronary Artery Disease; Diabetes Father David Holly Heart attack Father David Holly Myocardia l Infarction; Alzheimer's disease Mother Kasie Holly COPD Mother Kasie Holly Cancer Mother Kasie Holly Coronary artery disease Mother Kasie Holly Coronary Artery Disease; Diabetes Mother Kasie Holly Heart attack Mother Kasie Holly Myocardial Infarction; COPD Sister Glendy Raines Relation Name Status Comments Father David Holly Alive Mother Kasie Holly Alive Sister Glendy Raines Alive Social History Tobacco Use Types Packs/Day Years Used Date Smoking Tobacco: Never Smokeless Tobacco: Never Tobacco Cessation:Counseling Given: Not Answered Alcohol Use Standard Drinks/Week Comments Yes 0 (1 standard drink = 0.6 oz pur e alcohol) Comments Unknown Sex and Gender Information Value Date Recorded Sex Assigned at Not on file Legal Sex Female 1:14 AM DERRICKMAN HELPER Gender Identity Female 01/26/2019 2:42 PM CDT Sexual Orientation Straight 01/26/2019 2: 42 PM CDT Obstetrics History Last Filed Vital Signs Vital Sign Reading Time Taken Comments Blood Pressure 130/74 06/08/2024 9:45 AM DERRICKMAN HELPER Pulse 68 06/08/2024 9:45 AM DERRICKMAN HELPER Temperature 36.3 C (97.3 F) 10/27/2019 8:52 AM CDT Respiratory Rate 12 12/17/2016 8:05 AM CDT Oxygen Saturation 98% 06/08/2024 9:45 AM DERRICKMAN HELPER Inhaled Oxygen Concentration - - Weight 79.8 kg (176 lb) 06/08/2024 9:45 AM DERRICKMAN HELPER Height 149.9 cm (4' 11) 06/08/2024 9:45 AM DERRICKMAN HELPER Body Mass Index 35.55 06/08/2024 9:45 AM DERRICKMAN HELPER Plan of Treatment Health Maintenance Due Date Last Done Comments Colon Cancer Screening-Colonoscopy 1955 Depression Screening 1955 Fall Risk Assessment 1955 Hepatitis C Screening 1955 Osteoporosis Screening-Bone Density Scan 1955 Hepatitis B Screening 11/06/1971 Zoster Vaccine (2 of 3) 06/05/2011 04/10/2011 Well Visit 65+ 2018 Breast Cancer Screening-Mammogram 08/21/2022 022 Covid-19 Vaccine (2024- 6 season) 2024 02/27/2021, 07/01/2020, 06/10/2020 Influenza Vaccine (#1) 2024 , 01/18/2023, 03/15/2021, Additional history exists DTaP/Tdap/Td Vaccine (3 - Td or Tdap) 01/19/2034 01/20/2024, 01/07/2016, 12/24/2005, Additional history exists Pneumococcal vaccine 65+ Completed 020, 08/24/2015, 12/04/2010 Insurance MEDICARE MEDICARE [facility] [employer] Care Teams Guitar Repair Technician Relationship Specialty Start Date End Date Tino Mccormick MD [address] [place] [address] PCP - General Internal Medicine 11/25/21
--- OUTSIDE RECORDS SUMMARY | 2025-01-10 08:43 | XMS_ITS | Clinical Summary ---
Author Organization [facility] Address [address] [facility] [place] [address] Care Team Providers Care Roller Bearing Inspector Name Role Phone Jennyfer Sosa MD Primary Care Provider Source Comments [facility],non-owned Affiliates and Associated Physician Practices is amultiple site organization consisting of ambulatory clinics and hospital sitesin [place], [place], [place] and [place]. This disclosure is being madepursuant to the Care Everywhere program and may not contain all information available regarding this patient. Last updated 18.[facility] Allergies Active Allergy Reactions Criticality Noted Date Comments Propoxyphene Dizziness 02/07/2019 Erythromycin Diarrhea,Nausea and/or Vomiting Low Medications * Be aware that medications may not be up to date on this document. Alwaysverify current medications with the patient. hydroCHLOROthia zide (MICROZIDE) 12.5 MG capsule 12.5 mg 02/19/2015 Act hilary amLODIPine (NORVASC) 5 MG tablet 5 mg 02/19/2015 Active LORazepam (ATIVAN) 0.5 MG tablet 0.5 mg 11/28/2011 Active folic acid (FOLVITE) 1 MG tablet 1 mg 11/28/2011 Active metoprolol succinate XL 24hr (TOPROL XL) 100 MG tablet Take 100 mg by mouth once daily Active telmisartan (MICARDIS) 80 MG tablet Take 80 mg by mouth once daily Active nitroGLYCERIN (NITROSTAT) 0.4 MG tablet 0.4 mg 11/28/2011 Active aspirin EC (ECOTRIN) 81 MG tablet Take 81 mg by mouth once daily 01/18/2018 Active multivitamins (ONE A DAY) capsule take 1 capsule by oral route every day 07/04/2016 Active Active Problems No known active problems Social History Tobacco Use Types Packs/Day Years [...] on file Sexual Orientation Not on file Last Filed Vital Signs Vital Sign Reading Time Taken Comments Blood Pressure 128/79 02/23/2019 11:30 AM RELEASE OF INFORMATION CLERK Pulse 67 02/23/2019 11:30 AM RELEASE OF INFORMATION CLERK Temperature - - Respiratory Rate - - Oxygen Saturation 96% 02/23/2019 11:30 AM RELEASE OF INFORMATION CLERK Inhaled Oxygen Concentration - - Weight 80.7 kg (178 lb) 02/23/2019 9:24 AM RELEASE OF INFORMATION CLERK Height 149.9 cm (4' 11) 02/23/2019 9:24 AM RELEASE OF INFORMATION CLERK Body Mass Index 35.95 02/23/2019 9:24 AM RELEASE OF INFORMATION CLERK Plan of Treatment Health Maintenance Due Date Last Done Comments BONE DENSITY TESTING 1955 COLOGUARD (AGES 45-75) - COL ON CA SCREENING 1953 COLON MONITORING 1953 COLONOSCOPY - COLON CA SCREENING 1953 CT COLONOGRAPHY - COLON CA SCREENING 1953 Colorectal Cancer Screening 1953 FIT - COLON CA SCREENING 1953 FLEX SIG - COLON CA SCREENING 1953 LIPID TESTING 1955 MAMMOGRAM 1955 MEDICARE AWV 12 MONTHS 1953 HEPATITIS C SCREENING 11/01/1971 DTAP/TDAP/TD VACCINES (1 - Tdap) 1972 PNEUMOCOCCAL VACCINE 50+ (1 of 1 - PCV) 11/06/2003 ZOSTER VACCINE (1 of 2) 11/06/2003 SCREENING FOR DIABETES 02/23/2019 DEPRESSION SCREENING 04/13/2024 COVID-19 VACCINE (1 - 2023-2 5 season) 2024 INFLUENZA VACCINE (#1) 2024 Respiratory Syncytial Virus (RSV) Vaccine Pt: or over 60 yrs (1 - 1-dose 75+ series) 2028 HEPATITIS B VACCINE Aged Out No longe r eligible based on patient's age to complete this topic HIB VACCINE Aged Out No longer eligi ble based on patient's age to complete this topic HPV VACCINE Aged Out No longer eligi ble based on patient's age to complete this topic MENINGOCOCCAL (Group B) VACC INE SHARED DECISION-MAKING Aged Out No longer eligibl e based on patient's age to complete this topic MENINGOCOCCAL GROUPS A/C/Y/W VACCINE Aged Out No longer eligible b ased on patient's age to complete this topic Insurance Member Subscriber Plan / Payer (Ef fective 1982-Present) Name:Zo Holly Relation to Subscriber:Self Name:ZO HOLLY Payer ID:[id number] (NAIC) Group ID:[id number] Type:PPO Address: [address] [place] [id number] MEDICARE MEDICARE ANTHEM Care Teams Roller Bearing Inspector Relationship Specialty Start Date End Date Jennyfer Sosa MD [address] [place] [address] PCP - General 10/08/18
--- OUTSIDE RECORDS SUMMARY | 2025-01-10 08:43 | XMS_ITS | Clinical Summary ---
Author Organization [facility] Care Team Providers Care Plan Rep Name Role Phone Unavailable Primary Care Provider Unavailabl e Social History Tobacco Use Types Packs/Day Years Used Date Smoking Tobacco: Never Assessed Comments Unknown Sex and Gender Information Value Date Recorded Sex Assigned at Not on file Legal Sex Female 10:36 PM CDT Gender Identity Not on file Sexual Orientation Not on file Plan of Treatment Not on file
--- OUTSIDE RECORDS SUMMARY | 2025-01-10 08:43 | XMS_ITS | Encounter Summary ---
Author Organization [facility] Address [address] [place] [address] Care Team Providers Care Gage Maker Name Role Phone Tino Mccormick MD Primary Care Provider [phone] Encounter Details Date Type Department Care Team (Late st Contact Info) Description 03/03/2024 Orders Only [facility] [address] [place] [id number] Scanning, Provider Social History Tobacco Use Types Packs/Day Years Used Date Smoking Tobacco: Never Smokeless Tobacco: Never Alcohol Use Standard Drinks/Week Comments Yes 0 (1 standard drink = 0.6 oz pur e alcohol) Comments Unknown Sex and Gender Information Value Date Recorded Sex Assigned at Not on file Legal Sex Female 1:14 AM CONCRETE PIPE MAKER Gender Identity Female 01/26/2019 2:42 PM CDT Sexual Orientation Straight 01/26/2019 2: 42 PM CDT documented as of this encounter Plan of Treatment Not on file documented as of this encounter Procedures Procedure Name Priority Date/Time Associated Diagnosis Comments SCAN - LABS 03/03/2024 documented in this encounter Results * SCAN - LABS (03/03/2024) us Provider Scanning Final Result documented in this encounter Visit Diagnoses Not on filedocumented in this encounter Care Teams Gage Maker Relationship Specialty Start Date End Date Tino Mccormick MD [address] [place] [address] PCP - General Internal Medicine 11/25/21 documented as of this encounter
--- OUTSIDE RECORDS SUMMARY | 2025-01-10 08:43 | XMS_ITS | Encounter Summary ---
Author Organization [facility] Address [address] [place] [address] Care Team Providers Care Mind Reader Name Role Phone Jennyfer Sosa MD Primary Care Provider [phone] Encounter Details Date Type Department Care Team (Late st Contact Info) Description 12/31/2018 Lab Requisition [facility] DermPath Lab [address] [facility], [place] [id number] Winnie Zeng MD [address] [facility] [address] [place] [address] Social History Tobacco Use Types Packs/Day Years [...] Procedure Name Priority Date/Time Associated Diagnosis Comments DERMATOPATH TECHNICAL REPORT Routine 12/30/2018 12:00 AM CDT documented in this encounter Results * DERMATOPATH TECHNICAL REPORT (12/30/2018 12:00 AM CDT) Case Report Dermatopathology Report Case: [id number] Authorizing Provider: Winnie Zeng MD Collected: 12/30/2018 12:00 AM Ordering Location: [facility] Derm[facility] Lab Received: 12/31/2018 01:07 PM Pathologist: Ezio Kenyon MD Specimen: Skin, left antihelix 9 3:33 PM CDT DERMATOPATHOLOGY LABORATORY Clinical History R/O AK 3:33 PM CDT DERMATOPATHOLOGY LABORATORY Gross Description Specimen A: Received is one formalin filled container labeled with the patient's name and designated left antihelix. The specimen consists of a shave biopsy measuring 6x5x1 mm. Jar 0. [facility] Dermatopathology Laboratory performed the technical component only. 3:33 PM CDT DERMATOPATHOLOGY LABORATORY Embedded Images 3:33 PM CDT DERMATOPATHOLOGY LABORATORY DISCLAIMER An external and internal positive and negative controls are appropriate for the histochemical, immunohistochemical and immunofluorescence stain(s) in this case (if any), except where stated explicitly. The performance characteristics of the stain(s) cited in this report were developed and its performance characteristic determined by the Dermatopathology Laboratory at [facility], directed by Dr. Reji Kenyon. These tests need not be, and therefore are not, approved by the [place] Food and Drug Administration. The tests are used for clinical purposes. 3:33 PM CDT DERMATOPATHOLOGY LABORATORY at 1533 CDT Pathology/Cytolog y TISSUE SPECIMEN FROM SKIN / Unknown 12/30/2018 12/31/2018 1:07 PM CDT Winnie Zeng MD LAB - PATHOLOGY/CYTOLOGY OR DERABLES Final Result DERMATOPATHOLOGY LABORATORY [facility] - Department of Dermatology [address] [place] [address] 5th Floor Lab B [address] [phone] documented in this encounter Visit Diagnoses Not on filedocumented in this encounter Care Teams Mind Reader Relationship Specialty Start Date End Date Jennyfer Sosa MD [address] [place] [address] PCP - General 10/08/18 documented as of this encounter
== END 2025-01-10 08:30 | disposition home or self-care (01) ==
PROVIDERS: PCP Internal Medicine; Visit Provider Internal Medicine
DX: Z12.31 Encounter for screening mammogram for malignant neoplasm of breast (principal)
CPT/HCPCS: 77063; 77067